=== PATIENT | female | born 1960 | race Caucasian/White ===

== ENCOUNTER → 2024-02-17 | Outpatient (CLI) | payer BC, SELFPAY ==
--- NOTE | 2024-02-17 07:30 | XR_ITS ---
Examination: CT chest, without intravenous contrast. Sagittal and coronal 2-D reconstructions. Exam date and time: February 17, 2024 0746 hours INDICATIONS: Diagnosis solitary pulmonary nodule one year ago coughing shortness of breath pneumonia 3 weeks CTDI:vol (mGy) 17.3 DLP: (mGycm) 622 Technique: Multiple 3.0 mm axial sections of the chest to been obtained. Bone and lung density settings are obtained. Sagittal and coronal 2-D reconstructions have been obtained. Low dose protocols were performed. One or more of the following dose reduction techniques were used; automated exposure control, adjustment of the mA and/or KV according to patient size, use of iterative reconstruction technique. Findings: No thoracic aortic aneurysm dilatation Pulmonary artery segments are not enlarged No paratracheal tracheobronchial or bronchopulmonary adenopathy 3 mm soft pulmonary nodule right upper lobe image 74 2 mm pulmonary nodule left upper lobe image 91 4 mm pulmonary nodule lingular segment image 175 No pneumonia or pulmonary edema No pleural disease Fatty infiltration throughout the liver and spleen No gallstones No pancreatic or adrenal mass No hydronephrosis IMPRESSION: Subcentimeter pulmonary nodules as above, with this study as baseline recommend 6 month follow-up CT chest without contrast
== END | disposition home or self-care (01) ==
LOC: CCTX 07:00
PROVIDERS: PCP Nurse Practitioner Family; Referring Provider Nurse Practitioner Family; Visit Provider Nurse Practitioner Family
DX: R91.8 Other nonspecific abnormal finding of lung field (principal)
CPT/HCPCS: 71250

== ENCOUNTER 2024-02-18 06:40 | Day surgery (SDC) | payer BC, SELFPAY ==
[2024-02-18] VITALS (10 sets, daily range): BP systolic 126–189; BP diastolic 59–97; PULSE 55–74; RESP 12–18; TEMP 36.2–37.2; O2SAT 90–99; BMI 36.9
[2024-02-18] MEDS: MIDAZOLAM INJ 1 MG/ML VIAL 2 ML (ASD USE ONLY) 2 MG IV (07:33)
[2024-02-18] MEDS: DiphenhydrAMINE INJ 50 MG/ML VIAL 25 MG IV (07:34)
[2024-02-18] MEDS: fentaNYL CIT INJ 50 mCg/ML AMP 2ML (ASD USE ONLY) IV (07:34)
[2024-02-18] MEDS: LIDOCAINE JELLY 2% 5 ML TUBE (07:35)
== END 2024-02-18 08:31 | disposition home or self-care (01) ==
PROVIDERS: PCP Nurse Practitioner Family; Referring Provider Surgery; Visit Provider Surgery
PROC: 0DBE8ZX Excision of Large Intestine, Via Natural or Artificial Opening Endoscopic, Diagnostic (ICD-10-PCS; CPT 45380; principal; 2024-02-18 07:30)
DX: Z12.11 Encounter for screening for malignant neoplasm of colon (principal); D12.3 Benign neoplasm of transverse colon; D12.4 Benign neoplasm of descending colon; D12.8 Benign neoplasm of rectum; K64.1 Second degree hemorrhoids; K64.4 Residual hemorrhoidal skin tags; K57.30 Diverticulosis of large intestine without perforation or abscess without bleeding; I10 Essential (primary) hypertension
CPT/HCPCS: 45380; 45385; J1200; J2250; J3010; A9270

== ENCOUNTER → 2024-03-22 | Outpatient (CLI) | payer BC, SELFPAY ==
--- NOTE | 2024-03-22 14:45 | XR_ITS ---
Examination: Screening digital mammography, bilateral Computer aided detection 3-D breast Tomosynthesis, bilateral Date and time of exam: March 22, 2024 1422 hours Compared to mammograms dating to October 22, 2016 Indication: Screening Technique: Nonmagnified MLO, CC views of the breasts to been obtained, reconstructed from 3-D Tomosynthesis images. R2 computer aided detection program utilized for evaluation of suspicious masses and/or abnormal calcifications. 3-D Tomosynthesis images obtained. Findings: Scattered areas of fibroglandular density 10 mm focal asymmetry upper outer right breast posterior depth Benign calcifications Impression: BI-RADS Category 0: Incomplete: Need additional imaging evaluation 10 mm focal asymmetry upper outer right breast posterior depth, recommend follow-up spot tomographic views of this asymmetry as well as right breast sonography to complete the workup.
== END | disposition home or self-care (01) ==
PROVIDERS: PCP Nurse Practitioner Family; Referring Provider Nurse Practitioner Family; Visit Provider Nurse Practitioner Family
DX: Z12.31 Encounter for screening mammogram for malignant neoplasm of breast (principal); R92.8 Other abnormal and inconclusive findings on diagnostic imaging of breast; N64.89 Other specified disorders of breast
CPT/HCPCS: 77063; 77067

== ENCOUNTER 2024-04-06 07:45 | Day surgery (SDC) | payer BC, SELFPAY ==
--- NOTE | 2024-04-02 15:15 | ESHP_ITS ---
RE: RADHA RUSSO : 1960 DATE OF ADMISSION: 04/06/2024 HISTORY OF PRESENT ILLNESS: This is a 63-year-old 0 with postmenopausal bleeding and endometrial thickening, who presents for hysteroscopy, endometrial biopsies, and fractional dilatation and curettage to rule out hyperplasia and carcinoma. ALLERGIES: NO KNOWN DRUG ALLERGIES. MEDICATIONS: 1. Atorvastatin 40 mg 1 p.o. daily. 2. Montelukast 10 mg 1 p.o. daily. PAST MEDICAL HISTORY: Hyperlipidemia, obesity, seasonal allergies, lichen simplex chronicus vulva, depression, and anxiety. FAMILY HISTORY: Father has lung cancer, hypothyroidism, and COPD. Mother has hypertension. Paternal grandmother has breast cancer and heart disease. Paternal grandfather has COPD. Sister has hypothyroidism. PAST SURGICAL HISTORY: Denies. REVIEW OF SYSTEMS: She denies any chest pain, palpitations, cough, fever, shortness of breath or lower extremity pain. PHYSICAL EXAMINATION: VITAL SIGNS: Blood pressure is 120/64, heart rate 67, respirations 20, temperature 98.2, and weight 231 pounds. HEENT: Oropharynx and sclerae are clear. LUNGS: Clear to auscultation bilaterally. HEART: Regular rate and rhythm. ABDOMEN: No scars noted. Nontender. EXTREMITIES: Nontender. SKIN: No gross rashes or lesions. NEUROLOGIC: No focal deficit. ASSESSMENT: Endometrial thickening and postmenopausal bleeding. PLAN: Hysteroscopy, fractional dilatation and curettage, and endometrial biopsies. Informed consent was obtained. The patient made aware of the risks, complications, alternatives, and benefits of the proposed procedure and she agrees. DT: 14:05:15 TT: 15:13:00 Ref: [id number] - TID: [id number]
--- NOTE | 2024-04-05 07:00 | EKG_ITS ---
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
[2024-04-05 10:34] VITALS: BMI 38.3
[2024-04-05 11:14] LABS: Basophils # (Auto) 0.1 Thou/mm3 (0.0-0.2); Basophils % (Auto) 1 % (0-2.5); Eosinophils # (Auto) 0.1 Thou/mm3 (0.0-0.5); Eosinophils % (Auto) 1 % (0-10); Hematocrit 43.7 % (36.0-46.0); Hemoglobin 14.4 g/dL (12.0-16.0); Immature Granulocytes % (Auto) 0 % (0-0); Immature Granulocytes Auto 0.01 Thou/mm3 (0.00-0.00); Lymphocytes # (Auto) 2.5 Thou/mm3 (1.0-4.8); Lymphocytes % (Auto) 31 % (10-50); Mean Corpuscular Hemoglobin 29.3 pg (25.0-35.0); Mean Corpuscular Volume 89 fL (80-100); Monocytes # (Auto) 0.5 Thou/mm3 (0.0-0.8); Monocytes % (Auto) 6 % (0-12); Neutrophils % (Auto) 61 % (37-80); Nucleated Red Blood Cell % 0 /100 WBC (0); Platelet Count 258 Thou/mm3 (140-440); RDW Standard Deviation 45.5 fL (36.4-46.3); Red Blood Count 4.92 Miln/mm3 (4.00-5.20); White Blood Count 8.2 Thou/mm3 (3.6-11.0)
[2024-04-05 11:27] LABS: Partial Thromboplastin Time 25.4 Seconds (22.0-36.0); Prothrombin Time 10.7 Seconds (9.0-12.2)
[2024-04-05 11:31] LABS: Alanine Aminotransferase 28 U/L (10-49); Albumin, Serum 4.7 gm/dL (3.4-4.8); Albumin/Globulin Ratio 2.4 (1.2-2.2); Alkaline Phosphatase 75 U/L (46-116); Anion Gap 7 (7-16); Aspartate Amino Transferase 22 U/L (0-34); BUN/Creatinine Ratio 20 Ratio (12-20); Bilirubin,Total 0.4 mg/dL (0.3-1.2); Blood Urea Nitrogen 16 mg/dL (9-23); Calcium 9.9 mg/dL (8.3-10.6); Calcium (Corrected) 9.9 mg/dL (8.5-10.1); Carbon Dioxide 26.8 mMol/L (20.0-31.0); Chloride 108 mMol/L (98-107); Creatinine (Component) 0.8 mg/dL (0.6-1.3); Estimated Creatinine Clearance 87.5 mL/min (>60); Glucose 102 mg/dL (74-106); Osmolality,Calculated 284 (275-295); Potassium 3.9 mMol/L (3.4-5.1); Sodium 142 mMol/L (136-145); Total Protein 6.7 gm/dL (5.7-8.2); eGFR > 60 See Note
[2024-04-06] VITALS (7 sets, daily range): BP systolic 131–146; BP diastolic 57–73; PULSE 57–66; RESP 14–16; TEMP 36.3–36.6; O2SAT 94–97; BMI 38.2
[2024-04-06] MEDS: RINGERS LACTATED 1000 ML 1,000 ML 30 ML IV (08:15)
--- NOTE | 2024-04-06 10:16 | SUR.PHASEI ---
pt received from OR in recovery bay 1. pt asleep but responds to voice, breathing unlabored on room air. v/s stable. pt dressing peripad scant blood noted. report received from Della MEYER and Dr. Rodriguez.
[2024-04-06] MEDS: fentaNYL CIT INJ 50 mCg/ML AMP 2ML 25 MCG IV (10:44)
[2024-04-06] MEDS: ACETAMINOPHEN IVPB 1,000 MG/100 ML VIAL 250 MG IV (10:48)
--- NOTE | 2024-04-06 11:00 | SUR.PHASEII ---
pt able to tolerate oral fluids without difficulty swallowing or nausea/vomiting.
--- NOTE | 2024-04-06 11:26 | SUR.PHASEII ---
pt awake and alert, breathing unlabored on room air. v/s stable. pt dressing peripad scant blood noted. pt able to ambulate to wheelchair with steady gait. d/c instructions given with s/o Peter in room, all questions answered. pt d/c via wheelchair with all belongings.
--- NOTE | 2024-04-06 11:34 | ESOP_ITS ---
RE: RADHA RUSSO : 1960 DATE OF OPERATION: 04/06/2024 PREOPERATIVE DIAGNOSIS: Endometrial thickening. POSTOPERATIVE DIAGNOSES: Endometrial thickening with endometrial polyp. PROCEDURE PERFORMED: Hysteroscopy, MyoSure removal of endometrial polyp and fractional dilatation and curettage. SURGEON: Tereso Sheikh DO TEXTILE WORKER: None. ANESTHESIA: General. ANESTHESIOLOGIST: Dr. Rodriguez. ESTIMATED BLOOD LOSS: 5 mL FINDINGS: Anteverted uterus 7.5 cm, endometrial polyp 2 x 1 cm. No other abnormalities noted. DESCRIPTION OF PROCEDURE: After appropriate informed consent was obtained and the patient was made aware of the risks, complications, alternatives, and benefits of the proposed procedure, she was taken to the operating room where she underwent induction of general anesthesia. She was placed in the dorsal lithotomy position. She was prepped and draped in the usual sterile fashion. A timeout was performed. Speculum was placed in the vagina. A single-tooth tenaculum was used to grasp the anterior lip of the cervix and the cervix was dilated to accommodate the 5 mm Omni hysteroscope. The hysteroscope was then utilized to visualize the endocervix and uterine cavity and the above findings were noted. The MyoSure Reach device was then utilized to remove the endometrial polyp. The endocervix was curetted and specimen sent to Pathology. The uterine cavity was curetted and specimen sent to Pathology. All instruments were removed from the vagina. There was no bleeding at the end of the procedure. She was reversed from general anesthesia in the supine position and transferred to the recovery room in stable condition. She tolerated the procedure well. Counts were correct. I discussed with the patient's , the nature of her condition, intraoperative findings, and expectation for recovery. All questions answered. DT: 10:16:33 TT: 11:33:00 Ref: [id number] - TID: [id number]
== END 2024-04-06 11:26 | disposition home or self-care (01) ==
PROVIDERS: PCP Nurse Practitioner Family; Referring Provider Specialist; Visit Provider Specialist
PROC: 0U5B8ZZ Destruction of Endometrium, Via Natural or Artificial Opening Endoscopic (ICD-10-PCS; CPT 58563; principal; 2024-04-06 10:00)
DX: N84.0 Polyp of corpus uteri (principal); N95.0 Postmenopausal bleeding; E66.9 Obesity, unspecified; E78.5 Hyperlipidemia, unspecified; Z82.49 Family history of ischemic heart disease and other diseases of the circulatory system; Z80.3 Family history of malignant neoplasm of breast; Z80.1 Family history of malignant neoplasm of trachea, bronchus and lung; Z83.49 Family history of other endocrine, nutritional and metabolic diseases; Z01.810 Encounter for preprocedural cardiovascular examination; Z68.38 Body mass index [BMI] 38.0-38.9, adult
CPT/HCPCS: 58558; 36415; 80053; 85025; 85610; 85730; 86850; 86900; 86901; 93005; A4217; A4649; J0131; J0690; J1100; J2250; J2405; J2704; J3010; J7120

== ENCOUNTER → 2024-04-28 | Outpatient (CLI) | payer BC, SELFPAY ==
--- NOTE | 2024-04-28 10:00 | XR_ITS ---
Examination: Breast ultrasound, unilateral, right complete Date and time of exam: April 28, 2024 at 0940 hours INDICATIONS: Mammogram March 22, 2024 10 mm focal asymmetry upper outer right breast Technique: Real-time kay scale ultrasonographic imaging performed right breast including all 4 quadrants as well as nipple retroareolar and axillary region. Findings: No cystic or solid mass IMPRESSION: BI-RADS Category 1: Negative study
--- NOTE | 2024-04-28 10:30 | XR_ITS ---
Examination: Diagnostic digital mammography, unilateral, right Computer aided detection 3-D breast Tomosynthesis, unilateral Date and time of exam: April 28, 2024 0955 hours INDICATIONS: Mammogram March 22, 2024 10 mm focal asymmetry upper outer right breast posterior depth Technique: Nonmagnified MLO, CC views of the right breast have been obtained, reconstructed from 3-D Tomosynthesis images. R2 computer aided detection program utilized for evaluation of suspicious masses and/or abnormal calcifications. 3-D Tomosynthesis images obtained. Findings: Scattered areas of fibroglandular density 2 focal asymmetries remain outer right breast, each 87 mm, on the spot compression cc view Impression: BI-RADS category 3: Probably benign findings One additional 6 month right mammogram follow-up is needed to document stability of focal asymmetries described above
== END | disposition home or self-care (01) ==
LOC: CDIM 09:27
PROVIDERS: PCP Nurse Practitioner Family; Referring Provider Nurse Practitioner Family; Visit Provider Nurse Practitioner Family
DX: R92.331 Mammographic heterogeneous density, right breast (principal); N64.89 Other specified disorders of breast
CPT/HCPCS: 76641; 77061; 77065; G0279

== ENCOUNTER → 2024-12-15 | Outpatient (CLI) | payer BC, SELFPAY ==
--- NOTE | 2024-12-15 10:30 | XR_ITS ---
Examination: Breast ultrasound, unilateral, right complete Date and time of exam: December 15, 2024 1019 hours INDICATIONS: Right breast pain 4 months, 2 focal asymmetries outer right breast on mammogram April 28, 2024 Technique: Real-time kay scale ultrasonographic imaging performed right breast including all 4 quadrants as well as nipple retroareolar and axillary region. Findings: 9:00 nodule lobular margins 6 x 6 mm 11:00 cyst 3 x 3 mm 4.3 cm right axillary lymph node IMPRESSION: BI-RADS Category 3: Probably benign findings One additional 6 month right breast sonogram follow-up is needed to document stability of 9:00 nodule described above
--- NOTE | 2024-12-15 11:00 | XR_ITS ---
Examination: Diagnostic digital mammography, unilateral, right Computer aided detection 3-D breast Tomosynthesis, unilateral Date and time of exam: December 25, 2024 1032 hours INDICATIONS: Mammogram March 22, 2024 10 mm focal asymmetry upper outer right breast, 2 focal asymmetries outer right breast on mammogram April 28, 2024 Technique: Nonmagnified MLO, CC views of the right breast have been obtained, reconstructed from 3-D Tomosynthesis images. R2 computer aided detection program utilized for evaluation of suspicious masses and/or abnormal calcifications. 3-D Tomosynthesis images obtained. Findings: Scattered areas of fibroglandular density. Stable focal asymmetries outer right breast compared to the prior study 9:00 nodule 6 mm corresponding to 9:00 nodule lobular margins 6 mm on ultrasound study today Impression: BI-RADS category 3: Probably benign findings One additional 6 month right mammogram follow-up is needed to document stability of 9:00 nodule described above
== END | disposition home or self-care (01) ==
DX: R92.331 Mammographic heterogeneous density, right breast (principal); N63.15 Unspecified lump in the right breast, overlapping quadrants
CPT/HCPCS: 76641; 77061; 77065; G0279